=== PATIENT | male | born 1960 | race Caucasian/White ===

== ENCOUNTER → 2020-05-08 08:22 | Outpatient (CLI) | payer OTHER, SELFPAY ==
[2020-05-08 10:20] LABS: Absolute Lymphocyte Count 1.64 X10^3/uL (0.83-4.51); Absolute Neutrophil Count 1.8 X10^3/uL (2.0-7.7); Basophil# 0.03 X10^3/uL; Basophil% 0.8 % (0-1); Eosinophils% 2.6 % (0-5); Hematocrit 45.4 % (40-54); Hemoglobin 15.3 g/dL (13.0-16.5); Lymphocyte # 1.64 X10^3/ul (4.0); Lymphocyte % 42.1 % (19-41); Mean Corp Hgb Conc 33.7 g/dL (32-36); Mean Corpuscular Hgb 31.4 pg (27.0-32.0); Mean Corpuscular Volume 93.2 fL (80-94); Mean Platelet Vol. 9.8 fl (6.2-12.0); Monocyte# 0.31 X10^3/uL; Monocyte% 7.9 % (0-10); NRBC Flagged by Analyzer 0 % (0-5); Neutrophil # 1.81 X10^3/uL (2.7-7.7); Neutrophil % 46.3 % (47-70); Platelet Count 228 K/mm3 (150-450); RBC Distribution Width CV 12.3 % (11.6-14.6); RBC Distribution Width SD 42.4 fl (35.1-43.9); Red Blood Count 4.87 M/mm3 (4.6-6.2); White Blood Count 3.9 K/mm3 (4.4-11.0)
[2020-05-08 10:53] LABS: ALB/GLOB Ratio 1.2 RATIO (0.9-2.4); AST(SGOT) 28 U/L (15-37); Alanine Aminotransfer ALT/SGPT 33 U/L (16-61); Alkaline Phosphatase 47 U/L (45-117); Anion Gap 8 (5-15); BUN 12 mg/dL (7-18); BUN/Creat Ratio 11.9 RATIO (10-20); Calcium,Total 8.8 mg/dL (8.5-10.1); Chloride 107 mmol/L (98-107); Cholesterol 227 mg/dL (200); Creatinine, Serum 1.01 mg/dL (0.70-1.30); EST Glomerular Filtration Rate 81 mL/min (>60); Est Glom Filt Rate - Afr Amer 97 mL/min (>60); Globulin 3.3 g/dL (2.2-4.2); Glucose 106 mg/dL (74-106); High Density Lipoprotein 71 mg/dL; PSA,Total - Annual Screen 0.35 ng/mL (0.00-4.00); Potassium 3.9 mmol/L (3.5-5.1); Protein, Total 7.3 g/dL (6.4-8.2); Sodium Level 139 mmol/L (136-145); Thyroid Stim Hormone (TSH) 2.95 uIU/mL (0.358-3.74); Triglycerides 86 mg/dL; Very Low Density Lipoprotein 17 mg/dL (5-40)
[2020-05-13 14:28] LABS: Hemoglobin A1c 5.4 % (3.8-5.6)
== END ==
PROVIDERS: PCP Family Medicine; Referring Provider Family Medicine; Visit Provider Family Medicine
DX: Z00.8 Encounter for other general examination (principal); Z12.5 Encounter for screening for malignant neoplasm of prostate
CPT/HCPCS: 36415; 80053; 80061; 83036; 84153; 84443; 85025; G0103

== ENCOUNTER → 2020-08-20 15:15 | Outpatient (CLI) | payer OTHER, SELFPAY ==
--- NOTE | 2020-08-20 15:18 | RAD_ITS ---
STUDY: X-RAY - RIGHT SHOULDER REASON FOR EXAM: Male, 59 years old. PAIN TECHNIQUE: 3 view(s) of the shoulder. COMPARISON: None. FINDINGS: Please see the impression. RAD/Shoulder min 2 Views IMPRESSION: No acute fracture or dislocation in the right shoulder. Mild to moderate osteoarthritis of the glenohumeral and acromioclavicular joints. Clear visualized right lung. Electronically Signed: Fernando Interiano MD at 14:16 EDT Tel , Service support ,
== END ==
PROVIDERS: PCP Family Medicine; Referring Provider Family Medicine; Visit Provider Family Medicine
DX: M25.511 Pain in right shoulder (principal)
CPT/HCPCS: 73030

== ENCOUNTER → 2022-01-01 | Outpatient (CLI) | payer OTHER, SELFPAY ==
[2022-01-01 18:15] LABS: ALB/GLOB Ratio 1.2 RATIO (0.9-2.4); AST(SGOT) 50 U/L (15-37); Alanine Aminotransfer ALT/SGPT 70 U/L (16-61); Albumin, Serum 3.7 g/dL (3.2-5.0); Alkaline Phosphatase 48 U/L (45-117); Anion Gap 7 (5-15); BUN 14 mg/dL (7-18); BUN/Creat Ratio 13.3 RATIO (10-20); Calcium,Total 8.5 mg/dL (8.5-10.1); Chloride 109 mmol/L (98-107); Cholesterol 213 mg/dL (200); Creatinine, Serum 1.05 mg/dL (0.70-1.30); EST Glomerular Filtration Rate 77 mL/min (>60); Est Glom Filt Rate - Afr Amer 93 mL/min (>60); Globulin 3.2 g/dL (2.2-4.2); Glucose 114 mg/dL (74-106); High Density Lipoprotein 61 mg/dL; PSA,Total - Annual Screen 0.36 ng/mL (0.00-4.00); Potassium 3.5 mmol/L (3.5-5.1); Protein, Total 6.9 g/dL (6.4-8.2); Sodium Level 140 mmol/L (136-145); Triglycerides 182 mg/dL; Very Low Density Lipoprotein 36 mg/dL (5-40)
[2022-01-01 18:45] LABS: Hemoglobin A1c 5.5 % (3.8-5.6)
== END | disposition home or self-care (01) ==
PROVIDERS: PCP Family Medicine; Referring Provider Family Medicine; Visit Provider Family Medicine
DX: Z00.00 Encounter for general adult medical examination without abnormal findings (principal); R73.09 Other abnormal glucose; Z12.5 Encounter for screening for malignant neoplasm of prostate
CPT/HCPCS: 36415; 80053; 80061; 83036; 84153; G0103

== ENCOUNTER → 2023-03-22 | Outpatient (CLI) | payer OTHER, SELFPAY ==
[2023-03-22 17:38] LABS: Absolute Lymphocyte Count 2.37 X10^3/uL (0.83-4.51); Basophil# 0.03 X10^3/uL; Basophil% 0.5 % (0-1); Eosinophil# 0.24 X10^3/uL; Hematocrit 44.2 % (40-54); Lymphocyte # 2.37 X10^3/ul (0.83-4.51); Lymphocyte % 39.2 % (19-41); Mean Corp Hgb Conc 33.9 g/dL (32-36); Mean Corpuscular Hgb 31.6 pg (27.0-32.0); Mean Corpuscular Volume 93.1 fL (80-94); Mean Platelet Vol. 9.8 fl (6.2-12.0); Monocyte% 6.6 % (0-10); NRBC Flagged by Analyzer 0 % (0-5); Neutrophil % 49.5 % (47-70); Platelet Count 224 K/mm3 (150-450); RBC Distribution Width CV 12.1 % (11.6-14.6); RBC Distribution Width SD 41.9 fl (35.1-43.9); Red Blood Count 4.75 M/mm3 (4.6-6.2); White Blood Count 6.1 K/mm3 (4.4-11.0)
[2023-03-22 18:00] LABS: Hemoglobin A1c 5.4 % (3.8-5.6)
[2023-03-22 18:16] LABS: ALB/GLOB Ratio 1.2 RATIO (0.9-2.4); AST(SGOT) 25 U/L (15-37); Alanine Aminotransfer ALT/SGPT 35 U/L (16-61); Alkaline Phosphatase 53 U/L (45-117); Anion Gap 3 (5-15); BUN 17 mg/dL (7-18); BUN/Creat Ratio 16.3 RATIO (10-20); Calcium,Total 9.3 mg/dL (8.5-10.1); Chloride 106 mmol/L (98-107); Cholesterol 195 mg/dL (200); Creatinine, Serum 1.04 mg/dL (0.70-1.30); EST Glomerular Filtration Rate 77 mL/min (>60); Est Glom Filt Rate - Afr Amer 93 mL/min (>60); Globulin 3.4 g/dL (2.2-4.2); Glucose 98 mg/dL (74-106); High Density Lipoprotein 41 mg/dL; PSA,Total - Annual Screen 0.39 ng/mL (0.00-4.00); Potassium 4.1 mmol/L (3.5-5.1); Protein, Total 7.4 g/dL (6.4-8.2); Sodium Level 137 mmol/L (136-145); Triglycerides 212 mg/dL; Very Low Density Lipoprotein 42 mg/dL (5-40)
--- OUTSIDE RECORDS SUMMARY | 2023-03-22 19:31 | XMS RPT_ITS | CCD ---
Author Name Unknown Address [address] [place] [address] Organization [facility] Progress note 04-17-2020 Note Date & Type Note Facility 04-17-2020 Note HNO ID: [id number] Author: Rupert Escobar Service: ? Author Type: Sawmill Equipment Operator Type: Progress Notes Filed: 04/17/2020 3:02 PM Note Text: POPULATION HEALTH NAVIGATION OUTREACH Action/FYI Spoke to patient - patient reports transferring care to Dr. Gurpreet Arnett Contact made with patient or family member? YES Pt identified by name and : YES Outreach Outcome/Action Spoke to patient or caregiver: PCP confirmed / updated Reason for Outreach Attribution: Provider Off-boarding Payer: Payor: [facility] / Plan: [facility] / Product Type: HMO / Care Gap Reviewed:: Annual Wellness visit Flu vaccine Reminder: Reminder note to check Health Maintenance for items below Health Maintenance items due: DEPRESSION SCREENING due on 1973 HEPATITIS C SCREENING due on 09/25/1979 HIV SCREENING due on 09/25/1979 SHINGRIX VACCINE(1 of 2) due on 09/25/2011 DIABETES SCREEN due on 10/30/2011 LIPID SCREEN due on 10/29/2013 PROSTATE CANCER SCREENING DISCUSSION due on 2016 DTAP,TDAP,TD(2 - Td) due on 10/15/2018 INFLUENZA(1) due on 10/16/2019 Advanced Directives Completed: Have you ever planned for future healthcare decisions with a power of deputy commonwealth's attorney, living will, or advance directives? N/a Referrals: N/A Message Sent to Practice: NO Navigation Signature: Rupert Escobar, Population Health Navigator April 17, 2020 2:57 PM [facility] Progress note 04-16-2020 Note Date & Type Note Facility 04-16-2020 Note HNO ID: [id number] Author: Rupert Escobar Service: ? Author Type: Sawmill Equipment Operator Type: Progress Notes Filed: 04/16/2020 3:41 PM Note Text: POPULATION HEALTH NAVIGATION OUTREACH Action/FYI Attempted to contact patient on 04/16/2020 Result: left message on patient's voicemail asking patient to return my call - in regards to realigning patient with a new PCP, if patient does not already have an existing one - if patient has existing PCP, PCP field needs updated Contact made with patient or family member? NO Pt identified by name and : NO Outreach Outcome/Action Unable to reach patient: Left message Reason for Outreach Attribution: Provider Off-boarding Payer: Payor: [facility] / Plan: [facility] [employer] / Product Type: HMO / Care Gap Reviewed:: Annual Wellness visit Flu vaccine Reminder: Reminder note to check Health Maintenance for items below Health Maintenance items due: DEPRESSION SCREENING due on 1973 HEPATITIS C SCREENING due on 09/25/1979 HIV SCREENING due on 09/25/1979 SHINGRIX VACCINE(1 of 2) due on 09/25/2011 DIABETES SCREEN due on 10/30/2011 LIPID SCREEN due on 10/29/2013 PROSTATE CANCER SCREENING DISCUSSION due on 2016 DTAP,TDAP,TD(2 - Td) due on 10/15/2018 INFLUENZA(1) due on 10/16/2019 Advanced Directives Completed: Have you ever planned for future healthcare decisions with a power of deputy commonwealth's attorney, living will, or advance directives? N/a Referrals: N/A Message Sent to Practice: NO Navigation Signature: Rupert Escobar, Population Health Navigator April 16, 2020 12:54 PM [facility] Clinical Note 04-16-2020 Note Date & Type Note Facility 04-16-2020 Note Patient Outreach ([facility]) SHAYNE MANN ([id number]) 1960 M Date Time Provider Department 04/16/20 [facility] During your visit today, we recorded the following information about you: Rupert Esocbar Population Health Navigator 04/16/2020 3:41 PM Signed POPULATION HEALTH NAVIGATION OUTREACH Action/FYI Attempted to contact patient on 04/16/2020 Result: left message on patient's voicemail asking patient to return my call - in regards to realigning patient with a new PCP, if patient does not already have an existing one - if patient has existing PCP, PCP field needs updated Contact made with patient or family member? NO Pt identified by name and : NO Outreach Outcome/Action Unable to reach patient: Left message Reason for Outreach Attribution: Provider Off-boarding Payer: Payor: [employer] / Plan: [facility] / Product Type: HMO / Care Gap Reviewed:: Annual Wellness visit Flu vaccine Reminder: Reminder note to check Health Maintenance for items below Health Maintenance items due: DEPRESSION SCREENING due on 1973 HEPATITIS C SCREENING due on 09/25/1979 HIV SCREENING due on 09/25/1979 SHINGRIX VACCINE(1 of 2) due on 09/25/2011 DIABETES SCREEN due on 10/30/2011 LIPID SCREEN due on 10/29/2013 PROSTATE CANCER SCREENING DISCUSSION due on 2016 DTAP,TDAP,TD(2 - Td) due on 10/15/2018 INFLUENZA(1) due on 10/16/2019 Advanced Directives Completed: Have you ever planned for future healthcare decisions with a power of deputy commonwealth's attorney, living will, or advance directives? N/a Referrals: N/A Message Sent to Practice: NO Navigation Signature: Rupert Escobar Population Health Navigator April 16, 2020 12:54 PM Rupert Escobar Population Health Navigator 04/17/2020 3:02 PM Signed POPULATION HEALTH NAVIGATION OUTREACH Action/FYI Spoke to patient - patient reports transferring care to Dr. Gurpreet Arnett Contact made with patient or family member? YES Pt identified by name and : YES Outreach Outcome/Action Spoke to patient or caregiver: PCP confirmed / updated Reason for Outreach Attribution: Provider Off-boarding Payer: Payor: [facility] / Plan: [facility] / Product Type: HMO / Care Gap Reviewed:: Annual Wellness visit Flu vaccine Reminder: Reminder note to check Health Maintenance for items below Health Maintenance items due: DEPRESSION SCREENING due on 1973 HEPATITIS C SCREENING due on 09/25/1979 HIV SCREENING due on 09/25/1979 SHINGRIX VACCINE(1 of 2) due on 09/25/2011 DIABETES SCREEN due on 10/30/2011 LIPID SCREEN due on 10/29/2013 PROSTATE CANCER SCREENING DISCUSSION due on 2016 DTAP,TDAP,TD(2 - Td) due on 10/15/2018 INFLUENZA(1) due on 10/16/2019 Advanced Directives Completed: Have you ever planned for future healthcare decisions with a power of deputy commonwealth's attorney, living will, or advance directives? N/a Referrals: N/A Message Sent to Practice: NO Navigation Signature: Rupert Escobar Population Health Navigator April 17, 2020 2:57 PM Allergies As of Date: 04/16/2020 (No Known Allergies) Date Reviewed: 04/19/2019 Reviewed by: Nidhi PeterRn) ALVINO Palomino - Fully Assessed Reason for Visit: Population Health Navigation Outreach [3910] Cmt: Offboarding Problem List As Of Date: 04/16/2020 (None) Encounter Status:Closed by [facility] HEALTH NAVIGATORRUPERT on 04/16/20 [facility] Summary Purpose Family History No Family History Records Found Advance Directives No Advanced Directives Records Found Additional Source Comments (unrecognized sect ion and content) No Status Records Found INFORMATION SOURCE (unrecogn ized section and content) FOR RECORDS PERTAINING TO PATIENTS WHO ARE OR HAVE BEEN ENROLLED IN A CHEMICAL DEPENDENCY/SUBSTANCEABUSE PROGRAM, SOME INFORMATION MAY BE OMITTED. This clinical summary was aggregated from multiple sources. Caution should be exercised in using it in the provision of clinical care. This summary normalizes information from multiple sources, and as a consequence, information in this document may materially change the coding, format and clinical context of patient data. In addition, data may be omitted in some cases. CLINICAL DECISIONS SHOULD BE BASED ON THE PRIMARY CLINICAL RECORDS. [employer] provides no warranty or guarantee of the accuracy or completeness of information in this document.
== END | disposition home or self-care (01) ==
LOC: MFPLAB 16:16
PROVIDERS: PCP Family Medicine; Visit Provider Family Medicine
DX: Z00.00 Encounter for general adult medical examination without abnormal findings (principal); R74.8 Abnormal levels of other serum enzymes; R73.09 Other abnormal glucose; Z12.5 Encounter for screening for malignant neoplasm of prostate
CPT/HCPCS: 36415; 80053; 80061; 83036; 84153; 85025; G0103

== ENCOUNTER → 2024-04-06 | Outpatient (CLI) | payer OTHER, SELFPAY ==
[2024-04-06 15:33] LABS: PSA,Total - Annual Screen 0.36 ng/mL (0.00-4.00)
== END | disposition home or self-care (01) ==
LOC: MFPLAB 12:07
PROVIDERS: PCP Family Medicine; Referring Provider Family Medicine; Visit Provider Family Medicine
DX: Z12.5 Encounter for screening for malignant neoplasm of prostate (principal)
CPT/HCPCS: 36415; 84153; G0103

== ENCOUNTER → 2024-05-08 | Outpatient (CLI) | payer OTHER, SELFPAY ==
--- NOTE | 2024-05-08 10:02 | RAD_ITS ---
EXAM: Fluoroscopically guided injection of steroid and anesthetic into the right shoulder. 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 COMPARISON: None. TECHNIQUE: See below. FINDINGS: Informed consent was obtained. Aseptic technique, local anesthesia, and fluoroscopic guidance were utilized. 22 gauge spinal needle was inserted directly into the right glenohumeral joint. Confirmation of intra-articular positioning of the tip was confirmed by injection of 3-4 cc of Omnipaque 370. Finally, the joint was injected with 4 cc of 1% lidocaine and 2 cc of betamethasone. The needle was removed. The patient was discharged home directly in good condition. RAD/Inj/Asp Baldo Jt Should/Hip/Knee IMPRESSION: Uneventful fluoro guided right shoulder joint injection for treatment. Reading Location: [place] [address]
[2024-05-08] MEDS: Lidocaine 2% (5ml sdv) 5 ML VIAL.MPF INFILT (10:35)
[2024-05-08] MEDS: Betamethasone/Betamethasone 30 MG/5 ML Vial 12 MG INTRAARTIC (10:38)
[2024-05-08] MEDS: Lidocaine 1% (5 ml sdv) 5 ML Vial 4 ML INFILT (10:38)
== END | disposition home or self-care (01) ==
PROVIDERS: PCP Family Medicine; Referring Provider Specialist; Visit Provider Specialist
DX: M19.011 Primary osteoarthritis, right shoulder (principal)
CPT/HCPCS: 20610; 77002; Q9967; J0702